=== PATIENT | male | born 1945 | race African-American/Black ===

== ENCOUNTER 2021-07-07 21:31 | Inpatient (IN) | payer OTHER ==
[2021-07-07] MEDS ORDERED: SODIUM CHLORIDE 0.9% 500 ML INFUS.BAG IV ONE (21:43)
[2021-07-07] MEDS ORDERED: EPINEPHrine 1:1,000 1,000 MCG in DEXTROSE 5%-WATER - 249 ML IVPB SCH (22:00)
[2021-07-07 22:06] LABS: BASO % 0.5 % (0-2.0); EOS % 2.4 % (0-4.5); HEMOGLOBIN 13.2 GM/dL (11.7-16.9); LYMPH % 54.3 % (8-40); MCHC 33.1 g/dl (32.0-35.9); MEAN CELL VOLUME 81.6 fl (80-96); MEAN PLT VOLUME 8.9 fl (7.5-11.1); MONO % 6.1 % (3.8-10.2); NEUT % 36.7 % (42.8-82.8); PLATELET COUNT 191 10^3/uL (134-434); RDW 15.9 % (11.9-15.9); WHITE BLOOD COUNT 12.8 K/mm3 (4.0-10.0)
[2021-07-07 22:07] LABS: ARTERIAL BLD GAS O2 SATURATION 92.6 % (95-98); ARTERIAL BLOOD GAS BASE EXCESS -8.8 mmol/L (-2-2); ARTERIAL BLOOD GAS PO2 81.2 mmHg (80-100)
[2021-07-07 22:13] LABS: INR 1.02 (0.83-1.09); PROTHROMBIN TIME (PATIENT) 11.7 SEC (9.7-13.0)
[2021-07-07 22:14] LABS: ALLENS TEST POSITIVE; VENT MODE A/C; VENT RATE 14
[2021-07-07 22:16] LABS: ARTERIAL BLOOD GAS pH 7.165 (7.350-7.450)
[2021-07-07 22:16] LABS: ACTIVATED PTT 29.9 SECONDS (25.2-36.5)
[2021-07-07 22:27] LABS: CALCIUM 9.3 mg/dL (8.5-10.1)
[2021-07-07 22:28] LABS: ALBUMIN 2.9 g/dl (3.4-5.0); BLOOD UREA NITROGEN 15.3 mg/dL (7-18)
[2021-07-07 22:30] LABS: CREATININE 1.5 mg/dL (0.55-1.3)
[2021-07-07] MEDS: NOREPINEPHRINE D5W PREMIX 16,000 MCG/500 ML BAG IVPB SCH (22:30)
[2021-07-07 22:32] LABS: BILIRUBIN,TOTAL 0.3 mg/dL (0.2-1)
[2021-07-07 23:11] LABS: PLATELET ESTIMATE ADEQUATE
[2021-07-08] MEDS ORDERED: NITROGLYCERIN 2% OINTMENT - 1GM PACKET TD ONE ×3 (00:08→00:11)
[2021-07-08] MEDS ORDERED: PROPOFOL 1,000,000 MCG/100 ML VIAL ONE (00:48)
[2021-07-08] MEDS: PROPOFOL 1,000,000 MCG/100 ML VIAL IVPB SCH ×4 (01:08→19:29)
[2021-07-08 01:25] LABS: LACTIC ACID 2.8 mmol/L (0.4-2.0)
[2021-07-08] MEDS ORDERED: FENTANYL NS IVPB 500 MCG/100 ML BAG IVPB ONE (01:54)
[2021-07-08] MEDS ORDERED: HEPARIN NA (PORCINE) 5,000 UNITS/ML 1ML VIAL IVPUSH ONE (02:32)
[2021-07-08] MEDS ORDERED: HEPARIN NA (PORCINE) 5,000 UNITS/ML 1ML VIAL IVPUSH PRN ×2 (02:32)
[2021-07-08] MEDS: FENTANYL NS IVPB 500 MCG/100 ML BAG IVPB SCH (02:33)
[2021-07-08] MEDS: MUPIROCIN 2% TOPICAL OINTMENT FOR DECOLONIZATION NS SCH ×3 (02:34→21:40)
[2021-07-08] MEDS: HEPARIN - 25,000 UNIT in SODIUM CHLORIDE 495 ML IV SCH (03:18)
[2021-07-08 03:20] LABS: EPI CELLS 36 /uL (0-25.1); HYALINE CASTS 4 /uL (0-3.1); URINE APPEARANCE CLEAR; URINE BACTERIA 31 /uL (0-1359); URINE BILIRUBIN NEGATIVE (NEGATIVE); URINE COLOR YELLOW; URINE GLUCOSE (UA) 3+ (NEGATIVE); URINE KETONE NEGATIVE (NEGATIVE); URINE LEUK ESTERASE NEGATIVE (NEGATIVE); URINE NITRITE NEGATIVE (NEGATIVE); URINE PROTEIN 1+ (NEGATIVE); URINE RBC 129 /uL (0-23.9); URINE UROBILINOGEN 0.2 mg/dL (0.2-1.0); URINE WBC 34 /uL (0-25.8)
[2021-07-08] MEDS: INSULIN SLIDING SCALE (NOVOLOG) 1 VIAL SQ SCH ×4 (06:03→21:40)
[2021-07-08 07:35] LABS: HEMATOCRIT 43.2 % (35.4-49); HEMOGLOBIN 14.3 GM/dL (11.7-16.9); MCH 26.7 pg (25.7-33.7); MCHC 33.1 g/dl (32.0-35.9); MEAN CELL VOLUME 80.7 fl (80-96); MEAN PLT VOLUME 9.1 fl (7.5-11.1); PLATELET COUNT 223 10^3/uL (134-434); RBC 5.36 M/mm3 (4.00-5.60); RDW 16.3 % (11.9-15.9); WHITE BLOOD COUNT 20.6 K/mm3 (4.0-10.0)
[2021-07-08 07:50] LABS: INR 1.09 (0.83-1.09); PROTHROMBIN TIME (PATIENT) 12.6 SEC (9.7-13.0)
[2021-07-08 08:04] LABS: LACTIC ACID 4.3 mmol/L (0.4-2.0)
[2021-07-08 08:26] LABS: COCAINE, UR NEGATIVE (NEGATIVE); METHADONE, UR NEGATIVE (NEGATIVE); OPIATES, URI NEGATIVE (NEGATIVE); PHENCYCLIDINE,URINE NEGATIVE (NEGATIVE); URINE AMPHETAMINES NEGATIVE (NEGATIVE); URINE BARBITURATES NEGATIVE (NEGATIVE); URINE BENZODIAZEPINES POSITIVE (NEGATIVE)
[2021-07-08 09:12] LABS: ALBUMIN 3.4 g/dl (3.4-5.0); ALK PHOS 79 U/L (45-117); ANION GAP 15 MMOL/L (8-16); BILIRUBIN,TOTAL 0.5 mg/dL (0.2-1); BLOOD UREA NITROGEN 27.1 mg/dL (7-18); CALCIUM 8.2 mg/dL (8.5-10.1); CHLORIDE 104 mmol/L (98-107); CO2 20 mmol/L (21-32); CREATININE 1.5 mg/dL (0.55-1.3); GLUCOSE,RANDOM 478 mg/dL (74-106); MAGNESIUM 1.8 mg/dL (1.8-2.4); PHOSPHOROUS 3.7 mg/dL (2.5-4.9); SGOT/AST 515 U/L (15-37); SGPT/ALT 102 U/L (13-61); SODIUM 139 mmol/L (136-145); TOT PROT 6.6 g/dl (6.4-8.2)
[2021-07-08 09:45] LABS: ANISOCYTOSIS 2+; MACROCYTOSIS 0; PLATELET ESTIMATE NORMAL
[2021-07-08] MEDS: PANTOPRAZOLE SODIUM 40 MG VIAL IVPUSH SCH (14:41)
[2021-07-08] MEDS: NOREPINEPHRINE D5W PREMIX 16,000 MCG/500 ML BAG IVPB SCH (21:16)
[2021-07-08] MEDS: CHLORHEXIDINE GLUCONATE 4% CLEANSER FOR DECOLONIZATION TP SCH (21:40)
[2021-07-09] MEDS: PROPOFOL 1,000,000 MCG/100 ML VIAL IVPB SCH ×3 (01:10→14:02)
[2021-07-09] MEDS: FENTANYL NS IVPB 500 MCG/100 ML BAG IVPB SCH ×4 (01:45→18:23)
[2021-07-09] MEDS: HEPARIN - 25,000 UNIT in SODIUM CHLORIDE 495 ML IV SCH ×2 (02:45→10:20)
[2021-07-09] MEDS: INSULIN SLIDING SCALE (NOVOLOG) 1 VIAL SQ SCH ×4 (06:06→21:34)
[2021-07-09 07:53] LABS: CALCIUM 8.4 mg/dL (8.5-10.1)
[2021-07-09 07:54] LABS: BLOOD UREA NITROGEN 25.2 mg/dL (7-18); MAGNESIUM 1.8 mg/dL (1.8-2.4)
[2021-07-09 07:57] LABS: CREATININE 0.9 mg/dL (0.55-1.3); PHOSPHOROUS 2.9 mg/dL (2.5-4.9)
[2021-07-09] MEDS: PANTOPRAZOLE SODIUM 40 MG VIAL IVPUSH SCH (09:17)
[2021-07-09] MEDS: MUPIROCIN 2% TOPICAL OINTMENT FOR DECOLONIZATION NS SCH ×2 (09:18→21:32)
[2021-07-09] MEDS: LEVOTHYROXINE SODIUM 100 MCG VIAL IVPUSH SCH (09:18)
[2021-07-09] MEDS ORDERED: ACETAMINOPHEN 1000 MG/100 ML BAG IVPB ONE (12:48)
[2021-07-09] MEDS ORDERED: METOPROLOL TARTRATE 5 MG/5 ML VIAL IVPUSH ONE (12:49)
[2021-07-09 14:57] VITALS: BMI 31.1
[2021-07-09] MEDS: ENOXAPARIN NA (PORCINE) 40 MG/0.4 ML DISP.SYRIN SQ SCH (18:23)
[2021-07-09 18:42] LABS: ARTERIAL BLD GAS O2 SATURATION 99.4 % (95-98); ARTERIAL BLOOD GAS BASE EXCESS -2.1 mmol/L (-2-2); ARTERIAL BLOOD GAS PO2 203.7 mmHg (80-100); ARTERIAL BLOOD GAS pH 7.401 (7.350-7.450)
[2021-07-09 18:53] LABS: ALLENS TEST POSITIVE
[2021-07-09 18:54] LABS: PT'S TEMP 102.8; VENT MODE AC; VENT RATE 22
[2021-07-09] MEDS ORDERED: NOREPINEPHRINE BITARTRATE 16,000 MCG in SODIUM CHLORIDE 484 ML IV SCH ×3 (21:00)
[2021-07-09] MEDS: CHLORHEXIDINE GLUCONATE 4% CLEANSER FOR DECOLONIZATION TP SCH (21:32)
[2021-07-10] MEDS: INSULIN SLIDING SCALE (NOVOLOG) 1 VIAL SQ SCH ×2 (06:21→11:59)
[2021-07-10] MEDS: FENTANYL NS IVPB 500 MCG/100 ML BAG IVPB SCH (06:22)
[2021-07-10] MEDS: PROPOFOL 1,000,000 MCG/100 ML VIAL IVPB SCH (06:22)
[2021-07-10 07:50] LABS: BASO % 0.2 % (0-2.0); HEMATOCRIT 53.8 % (35.4-49); HEMOGLOBIN 18.2 GM/dL (11.7-16.9); LYMPH % 10.8 % (8-40); MCH 27.4 pg (25.7-33.7); MCHC 33.9 g/dl (32.0-35.9); MEAN CELL VOLUME 80.8 fl (80-96); MEAN PLT VOLUME 9.6 fl (7.5-11.1); PLATELET COUNT 227 10^3/uL (134-434); RBC 6.67 M/mm3 (4.00-5.60); RDW 16.8 % (11.9-15.9); WHITE BLOOD COUNT 21.4 K/mm3 (4.0-10.0)
[2021-07-10 08:16] LABS: BLOOD UREA NITROGEN 35.7 mg/dL (7-18)
[2021-07-10 08:18] LABS: CALCIUM 7.9 mg/dL (8.5-10.1)
[2021-07-10 08:20] LABS: CREATININE 2.4 mg/dL (0.55-1.3)
[2021-07-10 08:22] LABS: BILIRUBIN,TOTAL 0.8 mg/dL (0.2-1); TOT PROT 5.5 g/dl (6.4-8.2)
[2021-07-10 08:24] LABS: ALBUMIN 2.2 g/dl (3.4-5.0)
[2021-07-10] MEDS ORDERED: NOREPINEPHRINE BITARTRATE 4 MG/4 ML ML IV ONE (09:19)
[2021-07-10 09:30] LABS: ANISOCYTOSIS 0; HELMET CELLS 0; HOWELL-JOLLY BODIES 0; MACROCYTOSIS 0; OVALOCYTE 0; ROULEAU 0; SICKELED CELLS 0; TARGET CELLS 0; TEAR DROP CELLS 0; TOXIC GRANULATION 0
[2021-07-10] MEDS ORDERED: LACTATED RINGERS SOLUTION 1,000 ML/1,000 ML INFUS.BAG IV SCH (09:45)
[2021-07-10] MEDS: LEVOTHYROXINE SODIUM 100 MCG VIAL IVPUSH SCH (09:49)
[2021-07-10] MEDS: PANTOPRAZOLE SODIUM 40 MG VIAL IVPUSH SCH (09:49)
[2021-07-10] MEDS: ENOXAPARIN NA (PORCINE) 40 MG/0.4 ML DISP.SYRIN SQ SCH (09:49)
[2021-07-10] MEDS: MUPIROCIN 2% TOPICAL OINTMENT FOR DECOLONIZATION NS SCH (09:50)
[2021-07-10] MEDS ORDERED: PIPERACILLIN/TAZOB 3.375 GM 3.375 GM in DEXTROSE 5%-WATER - 50 ML IVPB SCH ×2 (11:30→11:45)
[2021-07-10] MEDS ORDERED: VANCOMYCIN PREMIX 1.5 GM 1,500 MG/300 ML BAG IVPB SCH ×2 (11:30→12:00)
[2021-07-10 12:03] VITALS: BP 87/79; PULSE 80; TEMP 101
== END 2021-07-10 12:21 | disposition expired ==
LOC: JER 21:31 → JERBED 07-08 00:08 → JICU 07-08 01:31
PROVIDERS: ADMIT Internal Medicine Pulmonary Disease; ATTEND Internal Medicine Pulmonary Disease
PROC: 5A1945Z Respiratory Ventilation, 24-96 Consecutive Hours (ICD-10-PCS; principal; 2021-07-07)
PROC: 05HM33Z Insertion of Infusion Device into Right Internal Jugular Vein, Percutaneous Approach (ICD-10-PCS; 2021-07-07)
DX: I21.4 Non-ST elevation (NSTEMI) myocardial infarction (principal); N17.0 Acute kidney failure with tubular necrosis; J96.01 Acute respiratory failure with hypoxia; G93.1 Anoxic brain damage, not elsewhere classified; E87.2 Acidosis; R57.0 Cardiogenic shock; I46.9 Cardiac arrest, cause unspecified; E88.09 Other disorders of plasma-protein metabolism, not elsewhere classified; I10 Essential (primary) hypertension; E11.9 Type 2 diabetes mellitus without complications; R74.01 Elevation of levels of liver transaminase levels; I45.10 Unspecified right bundle-branch block; E03.9 Hypothyroidism, unspecified
CPT/HCPCS: 36415; 36600; 70450-TC; 71045-TC-FY; 76937; 80048; 80053; 80307; 81003; 82550; 82553; 82803; 82962; 83036; 83605; 83735; 84100; 84443; 84484; 85025; 85610; 85730; 86850; 86900; 86901; 87040; 87086; 93005; 93010; 93308; 94002; 99285-25; C9803-CS; J1644; U0003; U0005